=== PATIENT | female | born 1985 | race Caucasian/White ===

== ENCOUNTER → 2021-05-06 16:02 | Outpatient (BNVA) | payer OTHER, SELFPAY | PROVIDERS: Family Provider Family Medicine; PCP Internal Medicine; Visit Provider Internal Medicine | DX: R53.82 Chronic fatigue, unspecified (principal) | CPT/HCPCS: 80053; 80061; 83550; 84443 ==

== ENCOUNTER 2022-06-09 09:10 | Outpatient (CLI) | payer OTHER, SELFPAY ==
--- NOTE | 2022-06-09 09:18 | NM_ITS ---
WS: [id number] NUCLEAR MEDICINE WHOLE BODY BONE SCAN HISTORY: POLYARTHRALGIA COMPARISON: RIGHT hip radiographs 06/09/2022 TECHNIQUE: The patient was injected with 25.3 mCi of Technetium 99m HDP and serial whole-body scintig kevin have been performed with anterior and posterior images. Abnormal uptake in the RIGHT hip at the junction of the femoral neck with the intertrochanteric regio n. There is additional moderate increased uptake in the proximal femoral diaphysis. The remaining ske letal demonstrates no additional focal areas of increased uptake. The skull is negative. No rib abnor malities. Normal soft tissue uptake. NM/NM bone scan whole body* [id number] IMPRESSION: 1. Abnormal uptake in the RIGHT femoral head and proximal femoral diaphysis. R adiographs performed on the same day demonstrated mixed lytic and sclerotic les ions. The lytic component extends to the femoral neck. Lesions do not appear ag gressive radiographically. The lytic component fills the marrow cavity placing the patient at increased risk for pathological fracture. Differential would inc lude fibrous dysplasia, atypical enchondroma and metastasis. 2. Recommend follow-up MRI of the RIGHT hip to include the proximal femur with and without contrast. Recommend follow-up with orthopedics. Biopsy may be nece ssary.
--- NOTE | 2022-06-09 12:24 | XR_ITS ---
WS: [id number] Exam: XR hip RT 2-3V wo/w pel* [id number] Date/Time of Exam: 06/09/2022 12:36 PM Reason For Exam: BONE SCAN COMPARISON No acute fracture or dislocation. 3 cm lucent lesion with sharply circumscribed surrounding bony scle rosis seen in the right femoral neck. There is also a second area of bony sclerosis in the upper diap hysis of the femur which is probably endosteal. No sign of periosteal thickening. Normal soft tissues . The joint compartments well maintained. XR/XR hip RT 2-3V wo/w pel* [id number] IMPRESSION: 1. No fracture or dislocation. 2. 3 cm lucent lesion with sharply circumscribed surrounding bony sclerosis. Fe atures suggest probable benign bone lesion. This may represent fibrous dysplasi a, atypical enchondroma or sequela from previous infection or trauma. There is also a second area of bony sclerosis in the upper diaphysis of the femur which may be endosteal. If the patient is clinically symptomatic in this region, further workup with MR I with and without contrast could be helpful.
== END 2022-06-09 09:11 | disposition home or self-care (01) ==
PROVIDERS: PCP Nurse Practitioner Family; Visit Provider Student in an Organized Health Care Education/Training Program
DX: M25.50 Pain in unspecified joint (principal)
CPT/HCPCS: 73502; 78306; A9561

== ENCOUNTER 2022-07-27 14:28 | Outpatient (CLI) | payer OTHER, SELFPAY ==
--- NOTE | 2022-07-27 | MR_ITS ---
WS: [id number] MRI RIGHT HIP with and without CONTRAST. COMPARISON: Radiograph 06/09/2022 and prior bone scan. Multiplanar, multisequence imaging is performed with and without contrast. MultiHance 20 mL IV. Focal decreased signal involving the RIGHT hip from the femoral neck to the proximal diaphysis. Abnor mal signal measures 6.1 x 2.3 cm. There is an additional area of decreased signal in the proximal fem oral diaphysis extending over a length of 2.9 cm. Variable signal on the T2 sequences. On the postcon trast images these bone lesions enhance. Lesions fill the marrow cavity and there is no adjacent per iosteal reaction or edema identified. No adjacent fluid and no bone remodeling although the marrow ca vity is significantly distended. No free fluid or ascites within the pelvis. The LEFT hip is negative. Urinary bladder is well distend ed. MR/MR hip RT wo/w con [id number] IMPRESSION: 1. Enhancing bone lesions fill the marrow cavity involving the RIGHT femoral n [place] into the proximal diaphysis. There is an additional lesion by nor mal bone in the proximal diaphysis. These lesions fill the marrow cavity which increases the risk for pathological fracture. These may be benign lesions but s hould be further evaluated by biopsy especially as there are 2 adjacent lesions . Differential includes atypical enchondroma and fibrous dysplasia. Metastatic bone disease should also be considered. Recommend evaluation by orthopedics for possible bone biopsy. 2. No periosteal reaction or pathological fracture at this time.
[2022-07-27] MEDS: gadobenate dimeglumine 20 mL vial IV (15:12)
== END 2022-07-27 14:29 | disposition home or self-care (01) ==
LOC: RAD 14:29
PROVIDERS: PCP Nurse Practitioner Family; Visit Provider Student in an Organized Health Care Education/Training Program
DX: M25.50 Pain in unspecified joint (principal)
CPT/HCPCS: 73723; A9577

== ENCOUNTER 2022-08-31 07:02 | Outpatient (CLI) | payer OTHER, SELFPAY ==
--- NOTE | 2022-08-31 07:12 | CT_ITS ---
WS: [id number] CT CHEST, ABDOMEN AND PELVIS WITH AND WITHOUT CONTRAST. HISTORY: BONE LESION TECHNIQUE: Contiguous 5 mm axial imaging performed through the chest, abdomen and pelvis with and wit hout IV contrast, oral contrast has been provided. Coronal and sagittal reformats chest. Coronal and sagittal reformats through the abdomen and pelvis. All CT scans at [facility] use at least on e of these dose optimization techniques: automated exposure control; mA and/or kV adjustment per jane ent size (includes targeted exams where dose is matched to clinical indication); or iterative reconst ruction. CONTRAST: Omnipaque 350; 95 mL IV. DLP: 3030.30 mGy.cm COMPARISON: None available. Chest CT: No pulmonary nodule or mass. No pneumonia. Aberrant RIGHT subclavian artery. Normal-sized t horacic aorta and pulmonary artery. Heart size is normal. No pericardial or pleural effusions. No med iastinal or hilar adenopathy. Small hiatal hernia. Abdomen CT: Liver and spleen are normal. Normal gallbladder. Normal pancreas. No bile duct dilatation . Normal adrenal glands. No renal obstruction or mass. No ascites or adenopathy. Well-distended stomach with contrast. No small bowel obstruction. The appendix is normal. Mild diffus e constipation. Pelvic CT: Unremarkable urinary bladder. Uterus is anteverted and normal size. Both ovaries are ident ified and normal. There are a few small follicles within each ovary. No free fluid or adenopathy. Previously described bone lesion is reidentified in the proximal RIGHT femur centered at the femoral neck. Lytic lesion with sclerotic margins measures 4.0 x 3.0 cm. No periosteal reaction. No pathologi stoney fracture. Nonaggressive appearance but due to size could potentially lead to a pathological fract ure. CT/CT chest abd pel wo/w con IMPRESSION: 1. No evidence for metastatic disease within the chest, abdomen or pelvis. 2. No ascites or adenopathy. 3. Reidentified mixed lytic and sclerotic lesion in the proximal RIGHT femur.
[2022-08-31] MEDS: iohexol 350 mg/mL 500 mL Btl (per mL) PO (08:30)
[2022-08-31] MEDS: iohexol 350 mg/mL 500 mL Btl (per mL) IV (08:31)
== END 2022-08-31 07:03 | disposition home or self-care (01) ==
LOC: RAD 07:03
PROVIDERS: PCP Nurse Practitioner Family; Visit Provider Student in an Organized Health Care Education/Training Program
DX: M89.9 Disorder of bone, unspecified (principal)
CPT/HCPCS: 71260; 74178; Q9967

== ENCOUNTER 2023-06-29 12:06 | Outpatient (CLI) | payer OTHER, SELFPAY ==
--- NOTE | 2023-06-29 12:15 | XRR_ITS ---
PROCEDURE INFORMATION: Exam: XR Cervical Spine Exam date and time: 06/29/2023 12:27 PM Age: 37 years old Clinical indication: Numbness and radiculopathy; Cervical region; Patient HX: Numbness in both hands/fingertips for 3 weeks; Additional info: Bilateral radiculopathy TECHNIQUE: Imaging protocol: Radiologic exam of the cervical spine. Views: 2 or 3 views. COMPARISON: NM bone scan whole body* [id number] 06/09/2022 11:43 AM FINDINGS: Bones/joints: Normal. No acute fracture. Normal alignment. There is straightening of cervical lordosis without subluxation. Soft tissues: Unremarkable. XR/XR cervical spine 3V* [id number] IMPRESSION: No acute findings.
== END 2023-06-29 12:07 | disposition home or self-care (01) ==
PROVIDERS: PCP Nurse Practitioner Family; Visit Provider Family Medicine
DX: M50.30 Other cervical disc degeneration, unspecified cervical region (principal)
CPT/HCPCS: 72040

== ENCOUNTER → 2023-09-08 12:40 | Outpatient (BNVA) | payer OTHER, SELFPAY | PROVIDERS: PCP Family Medicine; Visit Provider Family Medicine | DX: M79.7 Fibromyalgia (principal); N94.5 Secondary dysmenorrhea; Z79.899 Other long term (current) drug therapy | CPT/HCPCS: 82672; 86160; 86162; 86235; 86255; 86376 ==

== ENCOUNTER → 2023-09-26 12:21 | Outpatient (BNVA) | payer OTHER, SELFPAY | PROVIDERS: PCP Family Medicine; Visit Provider Internal Medicine Rheumatology | DX: Z79.899 Other long term (current) drug therapy (principal); R76.8 Other specified abnormal immunological findings in serum; M19.90 Unspecified osteoarthritis, unspecified site; Z71.85 Encounter for immunization safety counseling; L71.9 Rosacea, unspecified; L85.8 Other specified epidermal thickening | CPT/HCPCS: 36415; 80076; 82306; 84439; 84443; 85025; 85651; 86431; 86480; 86704; 86803; 87340 ==

== ENCOUNTER → 2023-12-13 13:14 | Outpatient (BNVA) | payer OTHER, SELFPAY | PROVIDERS: PCP Family Medicine; Visit Provider Nurse Practitioner Women's Health | DX: Z12.4 Encounter for screening for malignant neoplasm of cervix (principal); Z01.419 Encounter for gynecological examination (general) (routine) without abnormal findings | CPT/HCPCS: 87624 ==

== ENCOUNTER 2024-01-04 11:00 | Outpatient (CLI) | payer OTHER, SELFPAY ==
[2024-01-04 11:26] LABS: Basophils # 0.1 10^3/uL (0.0-0.1); Basophils % 1.1 %; Eosinophils # 0.1 10^3/uL (0.0-0.8); Eosinophils % 1.8 %; Hematocrit 43.1 % (36-47); Lymphocytes % 35.3 %; Mean Corpuscular HGB Conc 33.9 g/dL (30-55); Mean Corpuscular Hemoglobin 28.3 pg (27-33); Mean Corpuscular Volume 83.5 fl (85-98); Mean Platelet Volume 8.8 fL (7.4-10.4); Monocytes # 0.4 10^3/uL (0.2-0.9); Monocytes % 6.9 %; Neutrophils # 3.01 10^3/uL (1.8-7.7); Neutrophils % 54.5 %; Nucleated Red Blood Cells % 0 %; Platelet Count 291 10^3/cmm (157-399); Red Blood Count 5.16 10^6/uL (3.85-5.65); Red Cell Distribution Width 11.9 % (12.1-15.1); White Blood Count 5.52 10^3/uL (3.29-11.43)
[2024-01-04 11:46] LABS: Alanine Aminotransferase 14 U/L (0-33); Albumin Level 4.3 g/dL (3.5-5.2); Alkaline Phosphatase 65 U/L (35-105); Aspartate Amino Transferase 13 U/L (0-32); Globulin 2.8 g/dL (1.3-4.6); Glomerular Filtration Rate 93.6 mL/min (90-130); Total Bilirubin 0.3 mg/dL (0.15-1.2); Total Protein 7.1 g/dL (6.6-8.7)
== END 2024-01-04 11:01 | disposition home or self-care (01) ==
LOC: LAB 11:03
PROVIDERS: PCP Family Medicine; Visit Provider Internal Medicine Rheumatology
DX: Z79.899 Other long term (current) drug therapy (principal)
CPT/HCPCS: 36415; 80076; 82565; 85025; 86140

== ENCOUNTER → 2024-07-10 14:35 | Outpatient (BNVA) | payer OTHER, SELFPAY | PROVIDERS: PCP Family Medicine; Visit Provider Internal Medicine Rheumatology | DX: Z79.899 Other long term (current) drug therapy (principal) | CPT/HCPCS: 36415; 80076; 82306; 82565; 82728; 83540; 83550; 84439; 84443; 85025; 85651; 86140 ==

== ENCOUNTER 2024-12-12 07:17 | Outpatient (CLI) | payer OTHER, SELFPAY ==
--- NOTE | 2024-12-12 07:15 | MR_ITS ---
WS: [email or web address] EXAMINATION: MR hip RT wo con* [id number] ORDER DATE: 12/12/2024 7:25 AM COMPARISON: MRI 07/27/2022 HISTORY: recurring hip pain: hx endochondroma, last image 3 years ag CONTRAST: None. TECHNIQUE: Coronal STIR of the Pelvis. Coronal proton density, coronal T1, axial T2 fat sat, axial T1, sagittal T2 fat sat, and sagittal T1 performed of the hip. FINDINGS: Previously described lytic and sclerotic lesion involving the RIGHT femoral neck extending into the femoral diaphysis with adjacent proximal diaphyseal shaft lesion. These lesions are essentially unchanged since 07/27/2022. No evidence of significant progression. Femoral neck lesion measures 6.1 x 2.3 cm unchanged. Stable lesion in the proximal RIGHT femoral diaphysis. This lesion measures 2.8 cm. LEFT femoral neck and proximal diaphysis are normal in appearance. Normal bone marrow signal in the femoral heads. Normal bone marrow signal in the bony pelvis and sacrum. No other significant changes compared to previous. MR/MR hip RT wo con* [id number] IMPRESSION: 1. Previously described RIGHT femoral neck and proximal diaphyseal lesions are unchanged in appearance since 2021 with no significant progression. Patient re nellie at risk for pathologic fracture due to the size of the RIGHT femoral neck lesion. 2. LEFT femoral head and neck are normal in appearance. 3. No other significant changes.
== END 2024-12-12 07:18 | disposition home or self-care (01) ==
PROVIDERS: PCP Family Medicine; Visit Provider Family Medicine
DX: D16.21 Benign neoplasm of long bones of right lower limb (principal); M89.8X8 Other specified disorders of bone, other site
CPT/HCPCS: 73721

== ENCOUNTER → 2025-01-08 14:24 | Outpatient (BNVA) | payer OTHER, SELFPAY | PROVIDERS: PCP Family Medicine; Visit Provider Internal Medicine Rheumatology | DX: Z79.899 Other long term (current) drug therapy (principal) | CPT/HCPCS: 36415; 80076; 82306; 82565; 85025; 85651; 86140 ==

== ENCOUNTER 2025-06-04 15:03 | Outpatient (CLI) | payer OTHER, SELFPAY ==
[2025-06-04 17:06] LABS: Hematocrit 40.6 % (36-47); Hemoglobin 13.90 g/dL (11.27-16.99); Mean Corpuscular HGB Conc 34.2 g/dL (30-55); Mean Corpuscular Hemoglobin 28.8 pg (27-33); Mean Corpuscular Volume 84.2 fl (85-98); Nucleated Red Blood Cells % 0 %; Platelet Count 300 10^3/cmm (157-399); Red Blood Count 4.82 10^6/uL (3.85-5.65); White Blood Count 8.51 10^3/uL (3.29-11.43)
[2025-06-04 18:01] LABS: Alanine Aminotransferase 23 U/L (0-33); Albumin Level 4.2 g/dL (3.5-5.2); Alkaline Phosphatase 71 U/L (35-105); Aspartate Amino Transferase 20 U/L (0-32); Globulin 3.0 g/dL (1.3-4.6); Total Protein 7.2 g/dL (6.6-8.7)
== END 2025-06-04 15:04 | disposition home or self-care (01) ==
PROVIDERS: PCP Family Medicine; Visit Provider Internal Medicine Rheumatology
DX: Z79.899 Other long term (current) drug therapy (principal)
CPT/HCPCS: 36415; 80076; 82565; 85025; 85651; 86140